=== PATIENT | female | born 1980 | race Caucasian/White ===

== ENCOUNTER 2022-01-17 20:52 | Emergency (ER) | payer SELFPAY ==
[2022-01-18] MEDS ORDERED: CYCLOBENZAPRINE10 MG PO (02:00)
[2022-01-18] MEDS ORDERED: PREDNISONE20 MG PO (02:00)
== END 2022-01-18 02:20 | disposition home or self-care (01) ==
LOC: ER1 20:52
DX: M54.12 Radiculopathy, cervical region (principal); M79.602 Pain in left arm; F17.200 Nicotine dependence, unspecified, uncomplicated; Z88.5 Allergy status to narcotic agent; G43.909 Migraine, unspecified, not intractable, without status migrainosus
CPT/HCPCS: 72125; 73030; 99284